=== PATIENT | male | born 1945 | race Caucasian/White ===

== ENCOUNTER 2024-08-28 13:03 | Emergency (ER) | payer MEDICARE ==
[~2024-08-28] VITALS: Ht 170.2 cm; Wt 99.0 kg
[2024-08-28] VITALS (11 sets, daily range): BP systolic 143–171; BP diastolic 70–100
[~2024-08-28 13:03] MED LIST: ADVAIR DISKU IN; ALBUTEROL0.083 % IN; THEODUR
[2024-08-28] MEDS ORDERED: FUROSEMIDE 40 MG/4 ML SDV IV ONE (13:40)
[2024-08-28 14:11] LABS: BASO% 0.2 % (0-3); EOS% 0.4 % (0-8); HEMATOCRIT 36.1 % (39.0-50.0); HEMOGLOBIN 11.2 g/dl (14.0-18.0); IMMATURE GRANULOCYTES 0.3 % (0.0-5.0); LYMPH% 7.3 % (15-41); MEAN CELL VOLUME 90.7 fL CALC (80.0-100.0); MEAN CORPUSCULAR HGB 28.1 pG CALC (26.0-32.0); MONO% 4.4 % (2-13); NEUT# 13.93 thou/uL (1.82-7.42); NEUT% 87.4 % (42-76); RED BLOOD COUNT 3.98 mill/uL (4.70-6.10); RED CELL DISTRI WIDTH 14.1 % (11.5-15.5)
[2024-08-28 14:18] LABS: ALKALINE PHOSPHATASE 60 u/l (38-126); ANION GAP 13 (6-22 (CALC)); BUN 36 mg/dL (8-23); CARBON DIOXIDE 24 mmol/l (22-30); CHLORIDE 105 mmol/l (95-108); POTASSIUM 4.9 mmol/l (3.5-5.1); SGOT/AST 18 u/l (19-48); SODIUM 137 mmol/l (137-146); TOTAL PROTEIN 6.2 g/dL (6.3-8.2)
[2024-08-28 14:21] LABS: BILIRUBIN, TOTAL 0.6 mg/dL (0.2-1.3); BUN/CREATININE RATIO 17 (12-20 (CALC)); CREATININE 2.1 mg/dL (0.7-1.3); ESTIMATED GFR 32 ML/MIN (>=90 (CALC))
[2024-08-28] MEDS ORDERED: MUCINEX1200 MG PO (15:12)
[2024-08-28] MEDS ORDERED: LEVOFLOXACIN500MG PO (15:12)
[2024-08-28] MEDS ORDERED: oxyCODONE 5MG/ ACETAMINOPHEN 325MG TAB PO ONE (15:15)
[2024-08-28] MEDS ORDERED: levoFLOXacin 500 MG TAB PO ONE (15:15)
[2024-08-28] MEDS ORDERED: TUSSI-PRE2 PO (15:47)
== END 2024-08-28 15:58 | disposition home or self-care (01) ==
LOC: ED 13:03
PROVIDERS: Emergency Medicine
DX: J18.9 Pneumonia, unspecified organism (principal); I10 Essential (primary) hypertension; J45.909 Unspecified asthma, uncomplicated; Z95.5 Presence of coronary angioplasty implant and graft; Z20.822 Contact with and (suspected) exposure to COVID-19
CPT/HCPCS: J1940